=== PATIENT | female | born 1990 | race Two or more races ===

== ENCOUNTER 2018-01-07 04:40 | Inpatient (IN) | payer MEDICAID ==
[2018-01-07 06:36] LABS: ADD UMIC YES; UR ASCORBIC ACID NEGATIVE (NEGATIVE); UR BACTERIA FEW /HPF (NONE SEEN); UR BILIRUBIN (Dip) NEGATIVE (NEGATIVE); UR BLOOD (Dip) 1+ mg/dL (NEGATIVE); UR CLARITY CLEAR (CLEAR); UR COLOR YELLOW (YELLOW); UR GLUCOSE (Dip) NEGATIVE (NEGATIVE); UR KETONES (Dip) NEGATIVE (NEGATIVE); UR LEUKOCYTE ESTERASE (Dip) 1+ Leu/ul (NEGATIVE); UR NITRITE (Dip) NEGATIVE (NEGATIVE); UR RBC 1 /HPF (0-5); UR SQUAMOUS EPITHELIAL CELL FEW /HPF (FEW); UR TOTAL PROTEIN (Dip) NEGATIVE (NEGATIVE); UR UROBILINOGEN (Dip) NEGATIVE (NEGATIVE); UR WBC 3 /HPF (0-5)
[2018-01-07] MEDS ORDERED: CARBOPROST 250 MCG INJ IM ×2 (07:00→23:00)
[2018-01-07] MEDS ORDERED: IBUPROFEN 600 MG TAB PO (07:00)
[2018-01-07] MEDS ORDERED: OXYTOCIN 30 UNITS/LR 500 ML IV ×2 (07:00→23:00)
[2018-01-07] MEDS ORDERED: BUTORPHANOL 1 MG INJ IV (07:00)
[2018-01-07] MEDS ORDERED: BUTORPHANOL 2 MG INJ IV (07:00)
[2018-01-07] MEDS ORDERED: LIDOCAINE 1% (MPF) 30 ML INJ INJ (07:00)
[2018-01-07] MEDS ORDERED: HYDROCODONE/APAP (5/325) TAB PO (07:00)
[2018-01-07] MEDS ORDERED: MISOPROSTOL 200 MCG TAB PR ×2 (07:00→23:00)
[2018-01-07] MEDS ORDERED: METHYLERGONOVINE 0.2 MG INJ IM ×2 (07:00→23:00)
[2018-01-07] MEDS: LACTATED RINGER'S 1,000 ML IV ×3 (08:18→14:20)
[2018-01-07 08:30] LABS: ADD MAN DIFF? NO
[2018-01-07 08:33] LABS: WHITE BLOOD COUNT 8.3 10^3/ul (4.8-10.8)
[2018-01-07 08:33] LABS: BASOPHILS % 0.4 % (0.0-2.0); EOSINOPHILS # 0.1 10^3/ul (0.0-0.5); HEMATOCRIT 38.3 % (37.0-47.0); HEMOGLOBIN 12.4 g/dl (12.0-16.0); LYMPHOCYTES # 2.3 10^3/ul (0.8-2.9); LYMPHOCYTES % 27.4 % (15.0-51.0); MEAN CORPUSCULAR HEMOGLOBIN 28.8 pg (29.0-33.0); MEAN CORPUSCULAR HGB CONC 32.4 g/dl (32.0-37.0); MEAN CORPUSCULAR VOLUME 88.9 fl (82.0-101.0); MEAN PLATELET VOLUME 11.4 fl (7.4-10.4); MONOCYTE # 0.7 10^3/ul (0.3-0.9); MONOCYTES % 8.9 % (0.0-11.0); NEUTROPHIL # 5.1 10^3/ul (1.6-7.5); NEUTROPHILS % 61.1 % (39.0-77.0); PLATELET COUNT 225 10^3/UL (140-415); RED BLOOD COUNT 4.31 10^6/ul (4.20-5.40); RED CELL DISTRIBUTION WIDTH 12.7 % (11.5-14.5)
[2018-01-07 08:54] LABS: INR 0.92; PARTIAL THROMBOPLASTIN TIME 26.7 Sec (25.0-35.0); PROTIME 12.4 Sec (11.9-14.9)
[2018-01-07 08:56] LABS: ALANINE AMINOTRANSFERASE 19 IU/L (13-69); ALBUMIN 3.2 g/dl (3.3-4.9); ALBUMIN/GLOBULIN RATIO 1.06; ALKALINE PHOSPHATASE 183 IU/L (42-121); ANION GAP 11 (8-16); ASPARTATE AMINO TRANSFERASE 19 IU/L (15-46); BILIRUBIN,INDIRECT 0.4 mg/dl (0-1.1); BILIRUBIN,TOTAL 0.4 mg/dl (0.2-1.3); BLOOD UREA NITROGEN 10 mg/dl (7-20); CALCIUM 9.4 mg/dl (8.4-10.2); CARBON DIOXIDE 24 mmol/L (21-31); CHLORIDE 108 mmol/L (97-110); CREATININE 0.59 mg/dl (0.44-1.00); GLUCOSE 85 mg/dl (70-220); POTASSIUM 4.2 mmol/L (3.5-5.1); SODIUM 139 mmol/L (135-144); TOTAL PROTEIN 6.2 g/dl (6.1-8.1)
[2018-01-07 09:24] LABS: HEPATITIS B SURFACE ANTIGEN NEGATIVE (NEGATIVE)
[2018-01-07] MEDS ORDERED: FENTAnyl 2MCG/ML-ROPIV 0.2% 100 ML (09:49)
[2018-01-07] MEDS ORDERED: ONDANSETRON 4 MG INJ IV (10:00)
[2018-01-07] MEDS ORDERED: DIPHENHYDRAMINE 50 MG INJ IV (10:00)
[2018-01-07] MEDS ORDERED: EPHEDrine SULFATE 50 MG/5 ML SYG IV (10:00)
[2018-01-07] MEDS ORDERED: NALOXONE (0.4 MG/ML) INJ IV (10:00)
[2018-01-07] MEDS: FENTAnyl 2MCG/ML-ROPIV 0.2% 100 ML BAG EPI ×2 (10:22→18:48)
[2018-01-07 22:28] LABS: RAPID PLASMA REAGIN NONREACTIVE (NR)
[2018-01-07] MEDS: OXYTOCIN 30 UNITS/LR 500 ML IV ×2 (22:34→22:52)
[2018-01-07] MEDS: LACTATED RINGER'S 1,000 ML IV* (22:56)
[2018-01-07] MEDS ORDERED: BENZOCAINE 20% 56 ML SPRAY TOP (23:00)
[2018-01-08] MEDS: OXYTOCIN 30 UNITS/LR 500 ML IV (01:08)
[2018-01-08] MEDS: IBUPROFEN 600 MG TAB PO ×2 (01:09→05:17)
[2018-01-08] MEDS: LANOLIN 7 GM TUBE TOP (01:09)
[2018-01-08] MEDS: OXYCODONE/ASPIRIN (4.88/325) TAB PO ×2 (01:34→05:17)
[2018-01-08 08:41] LABS: ADD MAN DIFF? NO
[2018-01-08 08:44] LABS: WHITE BLOOD COUNT 13.9 10^3/ul (4.8-10.8)
[2018-01-08 08:44] LABS: BASOPHILS % 0.2 % (0.0-2.0); EOSINOPHILS # 0.2 10^3/ul (0.0-0.5); EOSINOPHILS % 1.2 % (0.0-7.0); HEMATOCRIT 32.5 % (37.0-47.0); HEMOGLOBIN 10.9 g/dl (12.0-16.0); LYMPHOCYTES # 2.3 10^3/ul (0.8-2.9); LYMPHOCYTES % 16.7 % (15.0-51.0); MEAN CORPUSCULAR HEMOGLOBIN 29.7 pg (29.0-33.0); MEAN CORPUSCULAR HGB CONC 33.5 g/dl (32.0-37.0); MEAN CORPUSCULAR VOLUME 88.6 fl (82.0-101.0); MONOCYTES % 7.3 % (0.0-11.0); NEUTROPHIL # 10.3 10^3/ul (1.6-7.5); NEUTROPHILS % 73.7 % (39.0-77.0); PLATELET COUNT 192 10^3/UL (140-415); RED BLOOD COUNT 3.67 10^6/ul (4.20-5.40); RED CELL DISTRIBUTION WIDTH 12.9 % (11.5-14.5)
[2018-01-08] MEDS: HYDROCODONE/APAP (10/325) TAB PO ×2 (09:58→14:04)
[2018-01-08] MEDS: IBUPROFEN 800 MG TAB PO (17:13)
[2018-01-09] MEDS: IBUPROFEN 800 MG TAB PO (00:17)
[2018-01-09] MEDS: HYDROCODONE/APAP (10/325) TAB PO ×2 (06:09→13:34)
[2018-01-09] MEDS: DIPHTH/TET/ACEL PERTUSS (ADULT) 0.5 ML VIAL IM* (09:00)
== END 2018-01-09 18:00 | disposition home or self-care (01) | DRG 775 ==
LOC: OBT 04:40 → PP1 01-08 00:17 → L-D 04:40 → OBT 07:15 → L-D 06:43
PROC: 10E0XZZ Delivery of Products of Conception, External Approach (ICD-10-PCS; principal; 2018-01-07)
PROC: 0KQM0ZZ Repair Perineum Muscle, Open Approach (ICD-10-PCS; 2018-01-07)
PROC: 4A1HXCZ Monitoring of Products of Conception, Cardiac Rate, External Approach (ICD-10-PCS; 2018-01-07)
DX: O34.219 Maternal care for unspecified type scar from previous cesarean delivery (principal); O70.1 Second degree perineal laceration during delivery; Z37.0 Single live birth; O99.214 Obesity complicating childbirth; E66.9 Obesity, unspecified; Z68.35 Body mass index [BMI] 35.0-35.9, adult; Z3A.39 39 weeks gestation of pregnancy
CPT/HCPCS: 62319; 76818; 80053; 81001; 85025; 85610; 85730; 86592; 86850; 86900; 86901; 87086; 87340